=== PATIENT | female | born 1980 | race African-American/Black ===

== ENCOUNTER 2016-08-27 09:49 | Inpatient (IN) | payer OTHER ==
[~2016-08-27] VITALS: Ht 162.6 cm; Wt 79.5 kg
[2016-08-27] VITALS (13 sets, daily range): BP systolic 132–154; BP diastolic 76–96
[~2016-08-27 09:49] MED LIST: CHROMAGEN,1 CAPSULE PO; IBUPROFEN800 MG PO; Motrin PO; NIFEDIPINE ER30 MG PO
[2016-08-27 11:29] LABS: EOSINOPHIL (%) 0.5 % (0-5); HEMATOCRIT 30.1 % (36.0-46.0); IMMATURE GRANULOCYTE (%) 0.2 % (0.0-0.7); LYMPHOCYTE COUNT 1.2 K/uL (1.0-2.8); MCH 28.4 PG (29.0-34.0); MCHC 33.6 G/DL (30.0-36.0); MCV 84.6 FL (83-99); MEAN PLAT.VOLUME 11.8 uM^3 (9.5-12.4); MONOCYTE (%) 9.6 % (3-12); MONOCYTE COUNT 0.6 K/uL (0-0.8); NEUTROPHIL (%) 70.7 % (45-76); NEUTROPHIL COUNT 4.5 K/uL (1.8-6.4); PLATELET COUNT 169 K/uL (156-360); RED BLOOD COUNT 3.56 M/uL (3.80-5.20); WHITE BLOOD COUNT 6.3 K/uL (4.1-10.2)
[2016-08-27 11:51] LABS: ANION GAP 10 MEQ/L (2-14); CHLORIDE 108 MEQ/L (99-109); POTASSIUM 3.4 MEQ/L (3.7-5.4); SAMPLE HEMOLYSIS CHECK 0; SAMPLE ICTERIC CHECK 0; SAMPLE LIPEMIA CHECK 0; SODIUM 138 MEQ/L (136-147); TOTAL BILIRUBIN 0.6 MG/DL (0.0-1.0)
[2016-08-27 11:53] LABS: UR CREATININE CONCENTRATION 71.2 MG/DL
[2016-08-27 11:57] LABS: ALKALINE PHOSPHATASE 126 IU/L (3-129); GFR ESTIMATE (CALCULATED) > 59 mL/min/; GLUCOSE 75 mg/dL (70-99); UREA NITROGEN (BUN) 9 mg/dL (9-23); URIC ACID 4.1 mg/dL (3.1-9.2)
[2016-08-27] MEDS ORDERED: FLINTSTONES GU1 EACH PO (18:22)
[2016-08-27] MEDS ORDERED: ASPIR 8181 M1 PO (18:22)
[2016-08-28] VITALS (21 sets, daily range): BP systolic 125–157; BP diastolic 73–94
[2016-08-29 03:37] VITALS: BP 138/78
[2016-08-29 07:46] LABS: EOSINOPHIL (%) 0.6 % (0-5); EOSINOPHIL COUNT 0.1 K/uL (0-0.3); HEMATOCRIT 25.3 % (36.0-46.0); IMMATURE GRANULOCYTE (%) 0.4 % (0.0-0.7); LYMPHOCYTE COUNT 1.5 K/uL (1.0-2.8); MCH 28.9 PG (29.0-34.0); MCV 84.9 FL (83-99); MEAN PLAT.VOLUME 11.4 uM^3 (9.5-12.4); MONOCYTE (%) 8.8 % (3-12); MONOCYTE COUNT 0.9 K/uL (0-0.8); NEUTROPHIL (%) 75.4 % (45-76); NEUTROPHIL COUNT 7.9 K/uL (1.8-6.4); PLATELET COUNT 136 K/uL (156-360); RBC DIS.WIDTH-CV 13.3 % (11.8-14.6); RBC DIS.WIDTH-SD 40.5 % (39-53); RED BLOOD COUNT 2.98 M/uL (3.80-5.20)
[2016-08-29 07:47] LABS: WHITE BLOOD COUNT 10.4 K/uL (4.1-10.2)
[2016-08-29 08:00] VITALS: BP 135/76
[2016-08-29 12:00] VITALS: BP 139/83
[2016-08-29 15:30] VITALS: BP 132/86
[2016-08-29 19:37] VITALS: BP 136/80
[2016-08-30 00:17] VITALS: BP 123/62
[2016-08-30 04:39] VITALS: BP 131/61
== END 2016-08-30 15:10 | disposition home or self-care (01) | DRG 775 ==
LOC: LDRP-OP → 2WEST 09:50 → LDRP-OP 10-08 15:19
PROVIDERS: Advanced Practice Midwife
DX: O13.4 Gestational [pregnancy-induced] hypertension without significant proteinuria, complicating childbirth (principal); O99.214 Obesity complicating childbirth; E66.9 Obesity, unspecified; Z68.30 Body mass index [BMI] 30.0-30.9, adult; O99.824 Streptococcus B carrier state complicating childbirth; O70.0 First degree perineal laceration during delivery; Z3A.38 38 weeks gestation of pregnancy; Z37.0 Single live birth; O99.03 Anemia complicating the puerperium; D64.9 Anemia, unspecified
CPT/HCPCS: 80053; 82570; 84156; 84550; 85025; G0378; J0595; J2540; J7120